=== PATIENT | male | born 1935 | race Hispanic/Latino ===

== ENCOUNTER → 2021-11-08 | Outpatient (CLI) | payer OTHER, MEDICARE ==
[~2021-11-08] MED LIST: ASPI-1026 PO; CLOP75TA14 PO; MECL-226 PO; MVI PO; PRAV40TA3 PO; REGADENOSON 0.4 MG/5 ML PF SYG IVP SCH
== END | disposition home or self-care (01) ==
LOC: SHCH 08:56
PROVIDERS: ATTEND Internal Medicine Cardiovascular Disease
DX: I10 Essential (primary) hypertension (principal); R06.02 Shortness of breath; R53.83 Other fatigue
CPT/HCPCS: 78452; 93017; 96374; A9500 ×2; J2785